=== PATIENT | female | born 1980 | race Caucasian/White ===

== ENCOUNTER 2017-09-12 13:32 | Emergency (ER) | payer OTHER ==
[~2017-09-12] VITALS: Ht 167.6 cm; Wt 102.1 kg
[~2017-09-12 13:32] MED LIST: ACCUNEB SO1.25 MG/1 INH; CELEBREX 200 M200 M1 PO; CYMBALTA20 MG PO; DEPAKOTE 250MG250 M1 PO; DIFLUCAN150 MG PO; DIFLUCAN200 MG PO; FLEXERIL PO; KEFLEX500 MG PO; LEVAQUIN 500 M500 MG PO; LEVOTHYROXIN0.025 MG PO; LITHIUM CARBON300 M3 PO; MINIPRESS2 MG PO; MINOCIN100 MG PO; NASONEX17 GM NASAL; NICOTINE TRANSD21 M1 TRANSDERM; NORCO 5-325 TA1 EACH PO; ONDANSETRON HCL4 M3 PO; SINGULAIR 10 MG10 M1 PO; ULTRAM ER200 MG PO; WELLBUTRIN SR100 MG PO; ZANTAC 150MG T150 MG PO
[2017-09-12] MEDS ORDERED: PLAVIX 75 MG TA75 M1 PO (13:53)
[2017-09-12] MEDS ORDERED: HYDROCODONE-AP1 EAC6 PO (14:36)
[2017-09-12 14:47] VITALS: BP 127/92
== END 2017-09-12 14:48 | disposition home or self-care (01) ==
LOC: M.ERS 13:32
DX: S63.591A Other specified sprain of right wrist, initial encounter (principal); E11.9 Type 2 diabetes mellitus without complications; M19.90 Unspecified osteoarthritis, unspecified site; E78.00 Pure hypercholesterolemia, unspecified; Z90.49 Acquired absence of other specified parts of digestive tract; Z85.3 Personal history of malignant neoplasm of breast; Z88.1 Allergy status to other antibiotic agents; Z88.0 Allergy status to penicillin; Z88.5 Allergy status to narcotic agent; Z88.8 Allergy status to other drugs, medicaments and biological substances; W51.XXXA Accidental striking against or bumped into by another person, initial encounter; Y93.89 Activity, other specified; Y92.89 Other specified places as the place of occurrence of the external cause; Y99.8 Other external cause status